=== PATIENT | male | born 1990 | race Caucasian/White ===

== ENCOUNTER 2019-01-18 19:22 | Emergency (ER) | payer OTHER ==
[~2019-01-18] VITALS: Ht 177.8 cm; Wt 90.7 kg
[~2019-01-18 19:22] MED LIST: ACET-8386 PO; DOCU-300 PO; IBUP-974 PO
[2019-01-18 19:25] VITALS: BP 138/70
[2019-01-18] MEDS ORDERED: KETOROLAC 60 MG/2 ML VIAL IM ONE (21:30)
[2019-01-18 22:22] VITALS: BP 138/70
== END 2019-01-18 22:22 | disposition home or self-care (01) ==
LOC: MED 19:22
DX: S83.92XA Sprain of unspecified site of left knee, initial encounter (principal); S13.4XXA Sprain of ligaments of cervical spine, initial encounter; Z79.1 Long term (current) use of non-steroidal anti-inflammatories (NSAID); Z79.899 Other long term (current) drug therapy; Z79.891 Long term (current) use of opiate analgesic; V89.2XXA Person injured in unspecified motor-vehicle accident, traffic, initial encounter; Y93.89 Activity, other specified; Y92.410 Unspecified street and highway as the place of occurrence of the external cause; Y99.8 Other external cause status
CPT/HCPCS: 72040; 73562; 96372; 99283; J1885